=== PATIENT | female | born 1980 | race Caucasian/White ===

== ENCOUNTER 2019-04-23 20:06 | Emergency (ER) | payer MEDICAID ==
[~2019-04-23] VITALS: Ht 157.5 cm; Wt 83.6 kg
[2019-04-23 20:10] VITALS: BP 103/55; PULSE 88; RESP 19; Ht 157.5 cm; Wt 83.6 kg
[2019-04-23] MEDS ORDERED: IBUPROFEN 600 MG TAB PO ONE (22:00)
[2019-04-23] MEDS ORDERED: LIDOCAINE 2% (MDV) 20 ML INJ INJ ONE (22:00)
[2019-04-23] MEDS ORDERED: SULF1TAB31 PO (23:53)
[2019-04-23] MEDS ORDERED: NAPR-985 PO (23:53)
[2019-04-23] MEDS ORDERED: CEPH-443 PO (23:53)
--- NOTE | 2019-04-25 04:42 | ERD ---
ER Documentation Chief Complaint Chief Complaint RIGHT GREAT TOE; POSSPARONYCHIA; HX OF DM HPI 38-year-old female presents emergency department complaining of redness, swelling, pain to the right great toe for the past 3 days which is rated 8/10 in severity, constant, alleviated with Tylenol. She is had no fevers, chills, or other symptoms at this time. She does report past history of type 2 diabetes and hypertension. No other symptoms reported currently. ROS All systems reviewed and are negative except as per history of present illness. Medications Home Meds Active Scripts Naproxen* (Naprosyn*) 500 Mg Tablet, 500 MG PO BID PRN for PAIN AND/OR INFLAMMATION, #30 TAB Prov:YAMILKA BELTRAN PA-C 04/23/19 Sulfamethoxazole/Trimethoprim* (Bactrim Ds* Tablet) 1 Each Tablet, 1 TAB PO BID, #14 TAB Prov:YAMILKA BELTRAN PA-C 04/23/19 Cephalexin* (Keflex*) 500 Mg Capsule, 500 MG PO QID for 7 Days, CAP Prov:YAMILKA BELTRAN PA-C 04/23/19 PMhx/Soc Medical and Surgical Hx: pt denies Surgical Hx History of Surgery: No Anesthesia Reaction: No Hx Neurological Disorder: No Hx Respiratory Disorders: No Hx Cardiac Disorders: Yes (HTN) Hx Psychiatric Problems: No Hx Miscellaneous Medical Probl: No Hx Alcohol Use: No Hx Substance Use: No Hx Tobacco Use: No Smoking Status: Never smoker FmHx Family History: No diabetes Physical Exam Vitals Vital Signs Date Temp Pulse Resp B/P (MAP) Pulse Ox O2 O2 Flow FiO2 Time Delivery Rate 04/23/19 98.1 88 19 103/55 97 20:10 (71) Physical Exam Const: No acute distress Head: Atraumatic Eyes: Normal Conjunctiva ENT: Normal External Ears, Nose and Mouth. Neck: Full range of motion. No meningismus. Resp: Clear to auscultation bilaterally Cardio: Regular rate and rhythm, no murmurs Abd: Soft, non tender, non distended. Normal bowel sounds Skin: No petechiae or rashes Back: No midline or flank tenderness Ext: Paronychia noted of the right great toe. No lymphatic streaking or warmth Neur: Awake and alert Psych: Normal Mood and Affect Results 24 hrs Current Medications Medications Dose Sig/Renu Start Time Status Last (Trade) Ordered Route PRN Stop Time Admin Dose Reason Admin Ibuprofen 600 mg ONCE ONCE 04/23/19 DC 04/23/19 (Motrin) PO 22:00 21:50 04/23/19 22:01 Lidocaine 20 ml ONCE ONCE 04/23/19 DC 04/23/19 (Xylocaine INJ 22:00 21:50 2% (Mdv) 20 04/23/19 22:01 ml) [place] [id number] Radiology Main Line: [phone] DIAGNOSTIC IMAGING REPORT Patient: SERGIO HERNANDEZ : 1980 Age: 38 Sex: F MR #: [id number] DOS: 04/23/19 0000 Ordering MD: YAMILKA BELTRAN PA-C Location: [facility] Room/Bed: PROCEDURE: XR right great toe. CLINICAL INDICATION: R great toe pain TECHNIQUE: AP, lateral and oblique views of the right great toe were obtained. The images were reviewed on a PACS workstation. COMPARISON: None. FINDINGS: No acute fracture is identified. Alignment and mineralization are normal. The joint spaces are preserved. No significant degenerative changes. There is diffuse right great toe soft tissue swelling. IMPRESSION: Right great toe soft tissue swelling. No acute fracture identified. RPTAT:HCLE Physician Malou Date Time Electronically viewed and signed by Physician Malou on 04/23/2019 23:49 cE/ CC: YAMILKA BELTRAN PA-C [id number] Procedures/MDM 38-year-old female presents to the emergency department for paronychia of the right great toe. Patient was explained the full risks, benefits, alternatives and she gave verbal consent for incision and drainage of the paronychia. X-ray was negative for signs of osteomyelitis. Paronychia Incision and Drainage with irrigation by me: Location: Right great toe Anesthesia: Digital block locally 1% Lidocaine Technique: Irrigated. Disrupted loculations w/ instrumentation Packing: None Complications: Neurovascularly intact post procedure 48 hour wound check. Scar minimization instructions given. No evidence of life-threatening pathology at time of discharge. Pt/family in agreement with discharge plan/diagnosis. Pt/family advised to return immediately with any new or worsening symptoms. Follow-up with primary care physician within the next 1-2 days. Departure Diagnosis: Primary Impression: Paronychia Condition: Fair Patient Instructions: Paronychia [facility] Usted se lawrence hecho un examen mdico de control que le indica que no est en kvng condicin que requiera tratamiento urgente en el Departamento de Emergencia. Un estudio ms profundo y el tratamiento de hines condicin pueden esperar sin ningn riesgo hasta que usted sea atendida/o en el consultorio de hines mdico o kvng clnica. Es responsabilidad suya arreglar kvng elana para el seguimiento del renetta. MANEJO DE CONDICIONES NO URGENTES EN EL FUTURO 1) Si usted tiene un mdico de atencin primaria: Usted debera llamar a hines mdico de atencin primaria antes de venir al departamento de emergencia. Despus de las horas de consultorio, hines doctor o hines asociado/a est disponible por telfono. El mdico o enfermero de alireza en el servicio telefnico puede asesorarle por kush medio para atender el problema, o renetta contrario se puede programar kvng elana. 2) Si usted no tiene un mdico de atencin primaria: Llame al mdico o clnica de referencia que aparece abajo amadeo las horas de consultorio para hacer kvng elana para que le vean. CLINICAS: [facility] 022 [phone] [address] [facility] 822 [phone] [address] [facility] 737 [phone] [address] [facility] [phone] [place] [address] [phone] [facility]. [phone] [address] Additional Instructions: Llame al doctor MAANA y aldair kvng ELANA PARA DENTRO DE 1-2 GUILLEN.Dgale a la secretaria que nosotros le instruimos hacer esta elana.Avise o llame si hines condicin se empeora antes de la elana. Regresa aqui si peor o no mejor. YAMILKA BELTRAN PA-C Apr 25, 2019 04:42
== END 2019-04-24 00:10 | disposition home or self-care (01) ==
LOC: FTE 20:06
DX: L03.031 Cellulitis of right toe (principal); E11.9 Type 2 diabetes mellitus without complications; I10 Essential (primary) hypertension
CPT/HCPCS: 10060; 73660; Z7502; Z7610

== ENCOUNTER 2019-06-24 16:56 | Emergency (ER) | payer MEDICAID ==
[~2019-06-24] VITALS: Ht 154.9 cm; Wt 87.3 kg
[~2019-06-24 16:56] MED LIST: AMOX500C2 PO; CEPH-443 PO; IBUP-1542 PO; NAPR-985 PO; SULF1TAB31 PO
[2019-06-24 17:40] VITALS: Ht 154.9 cm; Wt 87.3 kg
[2019-06-24 19:00] VITALS: BP 153/84; PULSE 87; RESP 18
== END 2019-06-24 19:05 | disposition home or self-care (01) ==
LOC: FTE 16:56
DX: J32.9 Chronic sinusitis, unspecified (principal); I10 Essential (primary) hypertension
CPT/HCPCS: 99283